=== PATIENT | female | born 1980 | race Caucasian/White ===

== ENCOUNTER → 2023-12-20 14:43 | Outpatient (REF) | payer OTHER, SELFPAY | LOC: HWRAD 14:43 | PROVIDERS: ATTENDING PHYSICIAN Obstetrics & Gynecology; FAMILY PHYSICIAN Family Medicine | DX: R10.2 Pelvic and perineal pain (principal) | CPT/HCPCS: 76830; 76856 ==

== ENCOUNTER 2024-09-24 13:08 | Emergency (ER) | payer OTHER, SELFPAY ==
[2024-09-24 13:13] VITALS: BP 155/83
--- NOTE | 2024-09-24 13:19 | ED.GENMED ---
History of Present Illness
General
Chief Complaint: Chest Pain
Time Seen by Provider: 09/24/24 13:19
History of Present Illness
History of Present Illness:
TIME OF INITIAL ENCOUNTER: 1:30 PM
HPI: Patient presents with intermittent chest discomfort the past few weeks and had trouble sleeping last night due to the discomfort. This is associated with numbness and she also questions if her symptoms could be related to anxiety. She notes
that sometimes her chest discomforts worsens after she is done exercising. There is a questionable pleuritic component.
EXAM:
GENERAL: Well appearing in no distress
HEENT: Moist oral mucosa
CARDIOVASCULAR: No murmurs, normal heart rate, regular rhythm, mild anterior chest wall tenderness
PULMONARY: No respiratory distress, breath sounds are clear and equal
ABDOMEN: Soft with no peritoneal signs, no tenderness
NEUROLOGIC: Excellent strength all extremities, no coordination deficits
PSYCHIATRIC: Appropriate mental status, normal insight and judgement
EXTREMITIES: Nontender, no edema, moves all extremities equally
SKIN: No rash, no lesions
NUMBER AND COMPLEXITY OF PROBLEMS ADDRESSED AT THE ENCOUNTER
� Chronic conditions affecting care: GERD, anxiety
� Acute Exacerbation and/or Progression of Chronic Illness: This is an acute problem but has had similar episodes in the past
� Differential Diagnosis includes: Anxiety, GERD, costochondritis, very low suspicion for ACS/PE
AMOUNT AND/OR COMPLEXITY OF DATA TO BE REVIEWED AND ANALYZED
� I performed an independent evaluation of and my interpretation is:
EKG: Sinus 107, normal axis, nonspecific ST abnormality; I reviewed the EKG from 06/06/2020 and at that time EKG was very similar.
CT:
X-rays: Chest x-ray shows no acute abnormality
Laboratory Studies: CBC, chemistries, D-dimer, and troponin all unremarkable
Other:
� Review of other/old records: The patient was seen here in multiple times until 2019 here with chest pain
� Clinical information was obtained by an independent historian: None needed
� Prescriptions/Medications Considered but not given:
� Further testing considered but not performed:
RISK OF COMPLICATIONS AND/OR MORBIDITY OR MORTALITY OF PATIENT MANAGEMENT
� Social determinants of health affecting care: Lives at home
� Discussion with other providers:
� Escalation of care including admission/observation vs risk of discharge considered: Patient's pain may be related to anxiety and/or costochondritis. Very low suspicion for PE/ACS. She is tachycardic upon arrival and was
hypertensive and favor more of an anxiety component. However we will also try Toradol as there is some tenderness to palpation.
ANY OTHER UPDATES:
3:55 PM: I reassessed patient. We talked about the possibly of costochondritis/anxiety. There is some mild tenderness to anterior chest wall palpation on reassessment. However no clear indication to keep her in the hospital. She states she has a
follow-up appointment with cardiology in November. She has been seen by cardiology for similar episode in the past.
Past History
Past History
ED Past Medical History: GERD and Psychiatric (Anxiety)
ED Past Surgical History: ( X 2)
Social History
Tobacco: Non-smoker
Alcohol: None
Drug: None
Personal:
Living: with family
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
Family History
Family History: CAD and Other (n/c)
Phy Exam
Physical Exam
Physical Exam:
See HPI
Scores
Heart Score for Chest Pain Patients
STEMI patient?: Not applicable
Course
Orders/Labs/Results
Orders:
Orders
09/24/24 13:08
EKG [Electrocardiogram (*1)] Urgent
Reason for Study: Chest Pain
09/24/24 13:09
EKG- Treatment ONCE
09/24/24 13:40
Ketorolac [Toradol] 15 mg IV NOW STA
CR Chest - 2 Views Urgent
Comment:
Reason For Exam: pain
09/24/24 14:07
Comprehensive Metabolic Panel Urgent
D-Dimer Urgent
Magnesium Urgent
09/24/24 14:08
Complete Blood Count/With Diff Urgent
Troponin I Urgent
Abnormal Lab Results
09/24/24 09/24/24
14: 14:08
Hgb 11.7 L g/dL
(12.0-16.0)
Hct 34.5 L %
(37.0-47.0)
MCV 80.0 L fL
(81.0-99.0)
Glucose 100 H mg/dl
(70-99)
09/24/24 14:08
09/24/24 14:07
Vital Signs
Initial and Last Documented VS:
Initial Vital Signs
Temp Pulse Resp BP Pulse Ox
98.4 F 94 18 155/83 97
09/24/24 13:13 09/24/24 13:13 09/24/24 13:13 09/24/24 13:13 09/24/24 13:13
Last Documented Vital Signs
Temp Pulse Resp BP Pulse Ox
98.4 F 89 12 117/71 100
09/24/24 13:13 09/24/24 16:00 09/24/24 16:00 09/24/24 15:00 09/24/24 16:00
*Critical Care Note
Total Time (30-74mins, 75-104mins- exclusive of procedures): Not Applicable
ED Attending Note
-
Portions of this chart may have been created with voice recognition software.� Occasional wrong word or��sound alike� substitutions may have occurred due to the inherent limitations of voice recognition software.
Discharge Plan
Departure
Patient Disposition: Home (Routine Discharge)
Date of Disposition: 09/24/24
Time of Disposition: 16:03
Patient with high blood pressure during this ER visit?: Yes
Discharge Problem:
Chest pain
Instructions: Chest Pain That Is Not Caused by the Heart (DC), BLOOD PRESSURE
Prescriptions:
No Action
multivitamin 1 EACH tablet
1 ea PO DAILY
esomeprazole magnesium [Nexium] 40 MG capsule,delayed release(DR/EC)
40 mg PO PRN PRN (Reason: indigestion)
Referrals:
Kurt Cortes, DO [Family Provider] -
Activity Restrictions/Additional Instructions:
The pain that you are experiencing does not appear to be caused by the heart. It is possible your symptoms could be related to costochondritis. Please follow-up with your primary care doctor. I recommend 3-4 [id number] ibuprofen (Motrin)
every 8 hours with food for a few days. Return here if worse. Chest x-ray is clear, cardiac blood work shows no sign of heart attack and blood work also shows no sign of blood clot. Follow-up with your felt coverer.
Interventions
Interventions:
*Risk Screen - Suicide Last Done: 09/24/24 13:13
*General Assessment Last Done: 09/24/24 13:13
*Neglect/Abuse Screening Last Done: 09/24/24 13:13
ED- Fall Risk Assessment Last Done: 09/24/24 14:14
ED- Cardiac Assessment Last Done: 09/24/24 14:14
Discharge Date and Time
Print Language: MAORI
[2024-09-24 14:04] VITALS: BMI 21.9
[2024-09-24] MEDS: TORADOL 15 MG IV (14:05)
[2024-09-24 14:10] VITALS: BP 122/72
[2024-09-24 14:20] LABS: % Basophils 0.4 % (0-2); % Eosinophils 0.8 % (0-6); % Immature Granulocytes 0.2 % (0-0.5); % Lymphocytes 32.9 % (20.5-51.1); % Monocytes 7.1 % (1.7-9.3); % Neutrophils 58.6 % (42.2-75.2); Absolute Lymphocytes 1.7 10^3/uL (1.2-3.4); Absolute Monocytes 0.4 10^3/uL (0.1-0.6); Hematocrit 34.5 % (37.0-47.0); Hemoglobin 11.7 g/dL (12.0-16.0); Mean Corp Hgb Conc. 33.9 g/dL (33.0-37.0); Mean Corpuscular Hgb 27.1 pg (27.0-31.0); Mean Platelet Volume 10.4 fL (7.4-10.4); Nucleated Red Blood Cells % 0 %; Platelet Count 290 10^3/uL (130-400); Red Blood Cell Count 4.31 10^6/uL (4.20-5.40); Red Cell Dist. Width 13.4 % (11.5-14.5); White Blood Cell Count 5.2 10^3/uL (4.8-10.8)
[2024-09-24 14:30] LABS: D-Dimer 0.31 ug/mlFEU (0.00-0.50)
[2024-09-24 14:32] LABS: ALT (SGPT) 33 U/L (0-35); AST (SGOT) 28 U/L (14-36); Albumin 4.7 g/dl (3.5-5.0); Alkaline Phosphatase 47 U/L (38-126); Blood Urea Nitrogen 12 mg/dl (7-17); Calcium 9.7 mg/dl (8.4-10.2); Carbon Dioxide 26 mmol/L (22-30); Chloride 101 mmol/L (98-107); Estimated Creatinine Clearance 118 ml/min; Glucose 100 mg/dl (70-99); Magnesium 1.7 mg/dl (1.6-2.3); Potassium 3.9 mmol/L (3.5-5.1); Sodium 138 mmol/L (135-145); Total Bilirubin 0.7 mg/dl (0.2-1.3); Total Protein 7.3 g/dl (6.3-8.2); eGFR > 60.00
[2024-09-24 14:43] LABS: Troponin I < 0.012 ng/ml
[2024-09-24 15:00] VITALS: BP 117/71
== END 2024-09-24 16:19 | disposition home or self-care (01) ==
LOC: EMR 13:08
PROVIDERS: EMERGENCY PHYSICIAN Emergency Medicine; FAMILY PHYSICIAN Student in an Organized Health Care Education/Training Program
DX: R07.89 Other chest pain (principal); F41.9 Anxiety disorder, unspecified; K21.9 Gastro-esophageal reflux disease without esophagitis
CPT/HCPCS: 99283; 96374; 71046; 80053; 83735; 84484; 85025; 85379; 93005

== ENCOUNTER → 2024-10-27 12:27 | Outpatient (REF) | payer OTHER, SELFPAY | LOC: HWRAD 12:27 | PROVIDERS: ATTENDING PHYSICIAN Obstetrics & Gynecology | DX: N93.9 Abnormal uterine and vaginal bleeding, unspecified (principal) | CPT/HCPCS: 76830; 76856 ==

== ENCOUNTER → 2024-12-09 07:18 | Outpatient (REF) | payer OTHER, SELFPAY | LOC: HWRCS 07:18 | PROVIDERS: ATTENDING PHYSICIAN Internal Medicine; FAMILY PHYSICIAN Student in an Organized Health Care Education/Training Program | DX: R06.09 Other forms of dyspnea (principal); R94.31 Abnormal electrocardiogram [ECG] [EKG]; R00.2 Palpitations | CPT/HCPCS: 93306 ==

== ENCOUNTER → 2024-12-11 07:23 | Outpatient (REF) | payer OTHER, SELFPAY | LOC: RCS 07:23 | PROVIDERS: ATTENDING PHYSICIAN Internal Medicine; FAMILY PHYSICIAN Student in an Organized Health Care Education/Training Program | DX: R07.9 Chest pain, unspecified (principal); R94.31 Abnormal electrocardiogram [ECG] [EKG]; R00.2 Palpitations; R06.09 Other forms of dyspnea | CPT/HCPCS: 93017 ==

== ENCOUNTER 2025-03-07 18:36 | Emergency (ER) | payer OTHER, SELFPAY ==
[2025-03-07 18:44] VITALS: BP 134/72
--- NOTE | 2025-03-07 19:54 | ED.GENMED ---
History of Present Illness
General
Chief Complaint: Chest Pain
Source: patient
Exam Limitations: none
Time Seen by Provider: 03/07/25 19:23
Nursing documentation reviewed up to this point in time: agreed with
History of Present Illness
History of Present Illness:
44-year-old female presents emergency room due to chest pain since 11 AM. She was at the gym started. It also happens when she is at rest. It persists. Is similar to previous chest pain. Her father of a heart attack 2 weeks ago. She
follows with Dr. Delong and has had a negative stress test in the past.
Past History
Past History
ED Past Medical History: GERD and Psychiatric (Anxiety)
ED Past Surgical History: ( X 2)
Social History
Tobacco: Non-smoker
Alcohol: None
Drug: None
Personal:
Living: with family
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
Family History
Family History: CAD and Other (n/c)
Review of Systems
Review of Systems
Allergies reviewed?: Yes
All Other Systems: Not applicable
Constitutional: Reports no symptoms
EENT: Reports no symptoms
Respiratory: Reports no symptoms
Cardiac: Reports chest pain
ABD/GI: Reports no symptoms
: Reports no symptoms
Musculoskeletal: Reports no symptoms
Skin: Reports no symptoms
Neurological: Reports no symptoms
Endocrine: Reports no symptoms
Hematologic/Lymphatic: Reports no symptoms
Psychiatric: Reports no symptoms
Phy Exam
Physical Exam
Physical Exam:
Physical Exam
General: no apparent distress, not acutely ill
Neck: supple. no meningeal signs. normal posterior pharynx
Heart: s1/s2 regular rate and rhythm, no murmur. equal radial
pulses.
HEENT: Pupils equal round reactive to light, EOMI
Lungs: no acute respiratory distress. clear bilaterally
Abdomen: normal bowel sounds. not tender. no CVAT
Neuro: alert and oriented. no focal neurological deficits cranial nerves II through XII intact
Skin: no rash
Psychiatric: well kept. interactive and cooperative
Extremities: no edema. no calf tenderness. negative homans. good distal pulses
Scores
Heart Score for Chest Pain Patients
STEMI patient?: No
History: Slightly or Non-Suspicious
ECG: Normal
Age: </= 45 years
Risk Factors: 1 or 2 Risk Factors
Troponin: </= Normal Limit
Heart Score for Chest Pain Patients: 1
Heart Score Risk: 2.5% MACE over next 6 weeks
Course
Orders/Labs/Results
Orders:
Orders
03/07/25 18:37
ECG [Electrocardiogram (*1)] Urgent
Reason for Study: Chest Pain
EKG- Treatment ONCE
03/07/25 20:03
IV Insert/Care/Rem.- Treatment PRN
03/07/25 20:19
Complete Blood Count/With Diff Urgent
Comprehensive Metabolic Panel Urgent
Troponin I Urgent
Abnormal Lab Results
03/07/25
20:19
Hct 35.2 L %
(37.0-47.0)
Carbon Dioxide 21 L mmol/L
(22-30)
Glucose 100 H mg/dl
(70-99)
03/07/25 20:19
03/07/25 20:19
Vital Signs
Initial and Last Documented VS:
Initial Vital Signs
Temp Pulse Resp BP Pulse Ox
98.4 F 89 16 134/72 99
03/07/25 18:44 03/07/25 18:44 03/07/25 18:44 03/07/25 18:44 03/07/25 18:44
Last Documented Vital Signs
Temp Pulse Resp BP Pulse Ox
98.4 F 90 17 142/81 99
03/07/25 18:44 03/07/25 22:00 03/07/25 22:00 03/07/25 22:00 03/07/25 22:00
MDM/Problems Addressed
Differential Diagnosis Includes:
ACS, PE
MDM/Problems Addressed:
44-year-old female with chest pain for the past 10 hours. No EKG changes. Normal troponin. Doubt ACS or PE. Stable for discharge.
*Pulse Oximetry
Patient hypoxic: no
*EKG
Interpreted by ED Provider?: Yes
EKG Intrepretation Date: 03/07/25
EKG Intrepretation Time: 18:41
Interpretation: abnormal
Comparison EKG: no changes
Heart Rate: 82
Rate: normal
Rhythm: sinus and sinus arrhythmia
[place]: normal axis
Interval: normal interval
QRS Pattern: normal QRS
Ischemia: non-specific ST changes
*Medical Practitioners Interpretation
Rate: normal
Interpretation: normal
Heart Rate: 88
Rhythm: sinus
*Critical Care Note
Total Time (30-74mins, 75-104mins- exclusive of procedures): Not Applicable
Data Reviewed
Further Testing Considered But Not Given:
CT chest not indicated
Patient Management
Social determinants of health affecting care: Living situation
Escalation/DeEscalation of care consider admission/obs:
Abdomen nondistended
ED Attending Note
-
Portions of this chart may have been created with voice recognition software.� Occasional wrong word or��sound alike� substitutions may have occurred due to the inherent limitations of voice recognition software.
Discharge Plan
Departure
Patient Disposition: Home (Routine Discharge)
Date of Disposition: 03/07/25
Time of Disposition: 22:18
Patient with high blood pressure during this ER visit?: Yes
Condition: Good
Discharge Problem:
Chest pain
Instructions: Chest Pain PCP Follow Up
Prescriptions:
No Action
multivitamin 1 EACH tablet
1 ea PO DAILY
escitalopram oxalate [Lexapro] 5 mg Tablet
5 mg PO DAILY
cholecalciferol (vitamin D3) [Vitamin D3] 50 mcg (2,000 unit) Capsule
50 mcg PO DAILY
[place] 3
1 cap PO DAILY
Referrals:
Apolinar Delong MD [Active] - Call in 1-3 days for appt
Kurt Cortes DO [Family Provider] - Call in 1-3 days for appt
Interventions
Interventions:
*Risk Screen - Suicide Last Done: 03/07/25 18:44
*General Assessment Last Done: 03/07/25 18:44
*Neglect/Abuse Screening Last Done: 03/07/25 20:11
*ED- Fall Risk Assessment Last Done: 03/07/25 20:25
*ED COVID-19 Vaccine History Last Done: 03/07/25 18:44
ED- Cardiac Assessment Last Done: 03/07/25 20:25
Discharge Date and Time
Print Language: BENGALI
[2025-03-07 20:00] VITALS: BP 123/75
[2025-03-07 20:10] VITALS: BMI 22.3
--- NOTE | 2025-03-07 20:26 | EDRN ---
Pt went to the gym around 1030 this morning and noted burning pain in the middle of her chest radiating into her L chest. Pain has been constant all day long. Pt says she feels sob sometimes. Pt with decreased appetite, ate soup today. Pt denies
abd pain, n/v/d/c, urinary symptoms, weakness. Pt feels lightheaded occasionally. Pt is supposed to be taking lexapro daily but has not been taking it. Pt took first dose this morning because of cp. Pt adds her father suddenly couple weeks
ago of a heart attack and thinks her symptoms are anxiety related.
[2025-03-07 20:27] LABS: % Basophils 0.4 % (0-2); % Eosinophils 0.3 % (0-6); % Immature Granulocytes 0.3 % (0-0.5); % Lymphocytes 29.3 % (20.5-51.1); % Monocytes 6.7 % (1.7-9.3); Absolute Lymphocytes 2.1 10^3/uL (1.2-3.4); Absolute Monocytes 0.5 10^3/uL (0.1-0.6); Absolute Neutrophils 4.4 10^3/uL (1.4-6.5); Hematocrit 35.2 % (37.0-47.0); Hemoglobin 12.1 g/dL (12.0-16.0); Mean Corp Hgb Conc. 34.4 g/dL (33.0-37.0); Mean Corpuscular Hgb 27.9 pg (27.0-31.0); Mean Corpuscular Volume 81.3 fL (81.0-99.0); Mean Platelet Volume 10.2 fL (7.4-10.4); Nucleated Red Blood Cells % 0 %; Platelet Count 285 10^3/uL (130-400); Red Blood Cell Count 4.33 10^6/uL (4.20-5.40)
[2025-03-07 20:47] LABS: ALT (SGPT) 20 U/L (0-35); AST (SGOT) 24 U/L (14-36); Albumin 4.9 g/dl (3.5-5.0); Alkaline Phosphatase 59 U/L (38-126); Blood Urea Nitrogen 10 mg/dl (7-17); Calcium 9.6 mg/dl (8.4-10.2); Carbon Dioxide 21 mmol/L (22-30); Chloride 106 mmol/L (98-107); Estimated Creatinine Clearance 118 ml/min; Glucose 100 mg/dl (70-99); Potassium 3.8 mmol/L (3.5-5.1); Sodium 137 mmol/L (135-145); Total Bilirubin 0.8 mg/dl (0.2-1.3); Total Protein 7.3 g/dl (6.3-8.2); eGFR > 60.00
[2025-03-07 20:51] LABS: Troponin I < 0.012 ng/ml
[2025-03-07 21:00] VITALS: BP 131/78
[2025-03-07 22:00] VITALS: BP 142/81
== END 2025-03-07 22:50 | disposition home or self-care (01) ==
LOC: EMR 18:36
PROVIDERS: EMERGENCY PHYSICIAN Emergency Medicine; FAMILY PHYSICIAN Student in an Organized Health Care Education/Training Program
DX: R07.89 Other chest pain (principal); R06.02 Shortness of breath; R42 Dizziness and giddiness; R03.0 Elevated blood-pressure reading, without diagnosis of hypertension; Z63.4 Disappearance and death of family member; F41.9 Anxiety disorder, unspecified; K21.9 Gastro-esophageal reflux disease without esophagitis; Z91.148 Patient's other noncompliance with medication regimen for other reason
CPT/HCPCS: 99283; 80053; 84484; 85025; 93005

== ENCOUNTER 2025-03-10 12:19 | Emergency (ER) | payer OTHER, SELFPAY ==
[2025-03-10 12:23] VITALS: BP 119/82
[2025-03-10 13:15] VITALS: BP 119/77
[2025-03-10 14:00] VITALS: BP 114/78
[2025-03-10 14:15] LABS: % Basophils 0.6 % (0-2); % Eosinophils 0.3 % (0-6); % Immature Granulocytes 0.3 % (0-0.5); % Lymphocytes 21.7 % (20.5-51.1); % Monocytes 5.8 % (1.7-9.3); % Neutrophils 71.3 % (42.2-75.2); Absolute Lymphocytes 1.5 10^3/uL (1.2-3.4); Absolute Monocytes 0.4 10^3/uL (0.1-0.6); Hematocrit 36.2 % (37.0-47.0); Hemoglobin 12.4 g/dL (12.0-16.0); Mean Corp Hgb Conc. 34.3 g/dL (33.0-37.0); Mean Corpuscular Hgb 28.5 pg (27.0-31.0); Mean Corpuscular Volume 83.2 fL (81.0-99.0); Mean Platelet Volume 10.3 fL (7.4-10.4); Nucleated Red Blood Cells % 0 %; Platelet Count 296 10^3/uL (130-400); Red Blood Cell Count 4.35 10^6/uL (4.20-5.40); Red Cell Dist. Width 12.7 % (11.5-14.5)
[2025-03-10] MEDS: VALIUM 5 MG PO (14:20)
[2025-03-10 14:25] LABS: HCG, Serum Qualitative Screen Negative
[2025-03-10 14:32] LABS: D-Dimer < 0.27 ug/mlFEU (0.00-0.50)
[2025-03-10 14:45] LABS: Troponin I < 0.012 ng/ml
[2025-03-10 15:00] VITALS: BP 112/72
--- NOTE | 2025-03-10 15:04 | ED.GENMED ---
History of Present Illness
<Shazia Siegel PA-C - Last Filed: 03/11/25 10:13>
General
Chief Complaint: Chest Pain
Source: patient
Exam Limitations: none
Time Seen by Provider: 03/10/25 13:15
Nursing documentation reviewed up to this point in time: agreed with
History of Present Illness
History of Present Illness:
pt is a 44 y/o F
h/o chronic abnormal ekg
followed by ddr. palacio
has had multiple ED eval for cp (more recently 3 days ago) but spaced out over the past few eyars
here with constant L chsest pain that started after work out and it has been woresning since ED visit then where they did ekg, trop and was told to f/u with cards
pt says she called them today and was told to come to the ER since she was still having active pain
pt's dad 2 weeks ago
she thinks she was doing ok until recently and it is all hitting her now
very stressful situation
pt has not had any rf for PE
Past History
<Shazia Siegel PA-C - Last Filed: 03/11/25 10:13>
Past History
ED Past Medical History: GERD and Psychiatric (Anxiety)
ED Past Surgical History: ( X 2)
Social History
Tobacco: Non-smoker
Alcohol: None
Drug: None
Personal:
Living: with family
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
Family History
Family History: CAD and Other (n/c)
Review of Systems
<CHARBEL Duncan Last Filed: 03/11/25 10:13>
Review of Systems
Allergies reviewed?: Yes
All Other Systems: Not applicable
Phy Exam
<Shazia Siegel PA-C - Last Filed: 03/11/25 10:13>
Physical Exam
Physical Exam:
GENERAL: Alert , in no apparent distress
EYE: pupils equal and reactive
NECK: Supple
ENT: o/p clr, mmm.
CARDIAC: Regular rate and rhythm .
chest: nontender
LUNGS: Clear breath sounds bilaterally, no acute respiratory distress, no wheezes/rales/rhonchi
ABDOMEN: Soft, without focal tenderness, no r/g, no cvat, normal bowel sounds
NEUROLOGICAL: Alert and oriented, no focal neuro deficits
SKIN: Warm and dry, skin intact.
MUSCULOSKELETAL: No edema, well perfused. neg rahel's sign
PSYCH: Normal and appropriate interaction.
Scores
<Shazia Siegel PA-C - Last Filed: 03/11/25 10:13>
Heart Score for Chest Pain Patients
Heart Score for Chest Pain Patients: 0
Heart Score Risk: 2.5% MACE over next 6 weeks
<Curtis Maldonado PA-C - Last Filed: 03/10/25 16:28>
Heart Score for Chest Pain Patients
STEMI patient?: No
History: Slightly or Non-Suspicious
ECG: Normal
Age: </= 45 years
Risk Factors: No Risk Factors
Troponin: </= Normal Limit
Heart Score for Chest Pain Patients: 0
Heart Score Risk: 2.5% MACE over next 6 weeks
Course
<Shazia Siegel PA-C - Last Filed: 03/11/25 10:13>
Orders/Labs/Results
Orders:
Orders
03/10/25 12:19
Electrocardiogram (*1) Urgent
Reason for Study: Chest Pain
EKG- Treatment ONCE
03/10/25 13:59
Test Result ONCE
03/10/25 14:06
Complete Blood Count/With Diff Urgent
Comprehensive Metabolic Panel Urgent
D-Dimer Urgent
HCG, Serum Qualitative Screen Urgent
Troponin I Urgent
03/10/25 14:13
Diazepam [Valium] 5 mg PO NOW STA
03/10/25 15:04
CR Chest - 2 Views Urgent
Comment:
Reason For Exam: chest pain
03/10/25 15:14
Ketorolac [Toradol] 15 mg IV NOW STA
Abnormal Lab Results
03/10/25
14:06
Hct 36.2 L %
(37.0-47.0)
Carbon Dioxide 20 L mmol/L
(22-30)
03/10/25 14:06
03/10/25 14:06
Vital Signs
Initial and Last Documented VS:
Initial Vital Signs
Temp Pulse Resp BP Pulse Ox
36.9 C 83 16 119/82 99
03/10/25 12:23 03/10/25 12:23 03/10/25 12:23 03/10/25 12:23 03/10/25 12:23
Last Documented Vital Signs
Temp Pulse Resp BP Pulse Ox
36.9 C 85 16 118/74 98
03/10/25 12:23 03/10/25 16:35 03/10/25 16:35 03/10/25 16:35 03/10/25 16:35
Silvialt;Curtis Maldonado PA-C - Last Filed: 03/10/25 16:28>
Orders/Labs/Results
Orders:
Orders
03/10/25 12:19
Electrocardiogram (*1) Urgent
Reason for Study: Chest Pain
EKG- Treatment ONCE
03/10/25 13:59
Test Result ONCE
03/10/25 14:06
Complete Blood Count/With Diff Urgent
Comprehensive Metabolic Panel Urgent
D-Dimer Urgent
HCG, Serum Qualitative Screen Urgent
Troponin I Urgent
03/10/25 14:13
Diazepam [Valium] 5 mg PO NOW STA
03/10/25 15:04
CR Chest - 2 Views Urgent
Comment:
Reason For Exam: chest pain
03/10/25 15:14
Ketorolac [Toradol] 15 mg IV NOW STA
Abnormal Lab Results
03/10/25
14:06
Hct 36.2 L %
(37.0-47.0)
Carbon Dioxide 20 L mmol/L
(22-30)
03/10/25 14:06
03/10/25 14:06
Vital Signs
Initial and Last Documented VS:
Initial Vital Signs
Temp Pulse Resp BP Pulse Ox
36.9 C 83 16 119/82 99
03/10/25 12:23 03/10/25 12:23 03/10/25 12:23 03/10/25 12:23 03/10/25 12:23
Last Documented Vital Signs
Temp Pulse Resp BP Pulse Ox
36.9 C 85 16 118/74 98
03/10/25 12:23 03/10/25 16:35 03/10/25 16:35 03/10/25 16:35 03/10/25 16:35
<Shazia Siegel PA-C - Last Filed: 03/11/25 10:13>
MDM/Problems Addressed
Differential Diagnosis Includes:
anxiety, acs, PE, gerd, msk pian
MDM/Problems Addressed:
44 yo F
no RF for ACS
upper L chest pain x 3 days after a work out
she has felt a ltitle sob and panicked as well
came to ED for this pain and had unchanged ekg and neg trop
she says her symptoms are persistent and a little worse so she called cards for appt and was told to come to the ER since she was fauzia willis
no syncope, leg swelling, tachycardia
just started lexapro 4 days ago for anxiety
she knows she has h/o panic and anxiety
ekg is subtle st nonspecific changes uncanged
pain is not provoked by activity
does not sound cardiac
d dimer, trop neg
cxr then zeke d/c
<Curtis Maldonado PA-C - Last Filed: 03/10/25 16:28>
*Critical Care Note
Total Time (30-74mins, 75-104mins- exclusive of procedures): Not Applicable
<Curtis Maldonado PA-C - Last Filed: 03/10/25 16:28>
Update Note
Update Note:
Received care of patient upon signout pending chest x-ray. Chest x-ray is clear. Workup reviewed troponin today and from visit couple days ago both undetectable. She will follow-up with cardiology as an outpatient. Stable for discharge
ED Attending Note
<Shazia Siegel PA-C - Last Filed: 03/11/25 10:13>
-
Portions of this chart may have been created with voice recognition software.� Occasional wrong word or��sound alike� substitutions may have occurred due to the inherent limitations of voice recognition software.
Discharge Plan
Departure
Patient Disposition: Home (Routine Discharge)
Date of Disposition: 03/10/25
Time of Disposition: 16:27
Patient with high blood pressure during this ER visit?: No
Condition: Fair
Discharge Problem:
Chest pain
Instructions: Chest Pain That Is Not Caused by the Heart (DC)
Prescriptions:
No Action
multivitamin 1 EACH tablet
1 ea PO DAILY
escitalopram oxalate [Lexapro] 5 mg Tablet
5 mg PO DAILY
cholecalciferol (vitamin D3) [Vitamin D3] 50 mcg (2,000 unit) Capsule
50 mcg PO DAILY
[place] 3
1 cap PO DAILY
Referrals:
Timmy Abdalla MD [Family Provider] - Follow up in 5-7 days
Activity Restrictions/Additional Instructions:
YOUR CHEST PAIN DOES NOT SEEM TO BE CAUSED BY AN EMERGENCY TODAY
PLEASE CALL YOUR EMERGENCY TECHNICIAN FOR AN APPOINTMENT
TELL THEM YOU WERE RULED OUT IN THE EMERGENCY DEPARTMENT
RETURN FOR ANY CONCERNS.
CONTINUE THE LEXAPRO.
Interventions
Interventions:
*Risk Screen - Suicide Last Done: 03/10/25 12:23
*General Assessment Last Done: 03/10/25 12:23
*Neglect/Abuse Screening Last Done: 03/10/25 12:23
*ED- Fall Risk Assessment Last Done: 03/10/25 13:06
*ED COVID-19 Vaccine History Last Done: 03/10/25 12:23
*Nursing Disposition Last Done: 03/10/25 16:42
ED- Cardiac Assessment Last Done: 03/10/25 13:23
Discharge Date and Time
Discharge Date/Time: 03/10/25 16:42
Print Language: [email or web address]
[2025-03-10 15:16] LABS: ALT (SGPT) 18 U/L (0-35); AST (SGOT) 19 U/L (14-36); Albumin 4.9 g/dl (3.5-5.0); Alkaline Phosphatase 50 U/L (38-126); Blood Urea Nitrogen 10 mg/dl (7-17); Calcium 9.6 mg/dl (8.4-10.2); Carbon Dioxide 20 mmol/L (22-30); Chloride 104 mmol/L (98-107); Glucose 98 mg/dl (70-99); Potassium 4.2 mmol/L (3.5-5.1); Sodium 137 mmol/L (135-145); Total Bilirubin 0.9 mg/dl (0.2-1.3); Total Protein 7.3 g/dl (6.3-8.2); eGFR > 60.00
[2025-03-10] MEDS: TORADOL 15 MG IV (15:19)
[2025-03-10 16:35] VITALS: BP 118/74
== END 2025-03-10 16:42 | disposition home or self-care (01) ==
LOC: EMR 12:19
PROVIDERS: Physician Assistant; EMERGENCY PHYSICIAN Emergency Medicine; FAMILY PHYSICIAN Family Medicine
DX: R07.89 Other chest pain (principal); K21.9 Gastro-esophageal reflux disease without esophagitis; F41.9 Anxiety disorder, unspecified
CPT/HCPCS: 99283; 96374; 71046; 80053; 84484; 84703; 85025; 85379; 93005